=== PATIENT | female | born 1995 | race Caucasian/White ===

== ENCOUNTER 2017-12-02 16:24 | Emergency (ER) | payer SELFPAY ==
[~2017-12-02] VITALS: Ht 167.6 cm; Wt 55.3 kg
[2017-12-02 19:01] LABS: BASOPHILS # (AUTO) 0.1 10^3/uL (0.0-0.1); BASOPHILS % (AUTO) 1 % (0-10); EOSINOPHILS % (AUTO) 0 % (0-10); HEMATOCRIT 39 % (35-52); HEMOGLOBIN 13.4 G/DL (11.5-16.0); LYMPHOCYTES # (AUTO) 1.8 X 10^3 (1.0-4.0); LYMPHOCYTES % (AUTO) 15 % (12-44); MEAN CORPUSCULAR HEMOGLOBIN 29 PG (25-34); MEAN CORPUSCULAR HGB CONC 34 G/DL (32-36); MEAN CORPUSCULAR VOLUME 85 FL (80-99); MEAN PLATELET VOLUME 9.8 FL (7.4-10.4); MONOCYTES # (AUTO) 0.6 X 10^3 (0.0-1.0); MONOCYTES % (AUTO) 5 % (0-12); NEUTROPHILS # (AUTO) 9.5 X 10^3 (1.8-7.8); NEUTROPHILS % (AUTO) 80 % (42-75); PLATELET COUNT 388 10^3/uL (130-400); RED BLOOD COUNT 4.58 10^6/uL (4.35-5.85); RED CELL DISTRIBUTION WIDTH 13.1 % (10.0-14.5); WHITE BLOOD COUNT 11.9 10^3/uL (4.3-11.0)
[2017-12-02 19:15] LABS: BILIRUBIN,URINE NEGATIVE (NEGATIVE); CLARITY,URINE CLEAR; COLOR,URINE YELLOW; GLUCOSE, URINE (UA) NEGATIVE (NEGATIVE); KETONES,URINE 4+ (NEGATIVE); LEUKOCYTE ESTERASE ,URINE NEGATIVE (NEGATIVE); NITRITE,URINE NEGATIVE (NEGATIVE); PH,URINE 5 (5-9); PROTEIN,URINE 1+ (NEGATIVE); UROBILINOGEN,URINE NORMAL (NORMAL)
[2017-12-02 19:20] LABS: HCG,QUALITATIVE URINE NEGATIVE (NEGATIVE)
--- NOTE | 2017-12-02 19:21 | ED Psychosocial ---
General Chief Complaint: Psych/Social Disorder Stated Complaint: SELF HARM/ANXIETY Nursing Triage Note: PT AMB TO ROOM 6 WITH MOTHER AND SO. PT REPORTS THAT IN THE LAST FEW WEEKS SHE WAS STARTED ON FLUOXETINE 20 MG AND THAT DOSAGE WAS INCREASED TO 40 MG 3 DAYS AGO. SHE WAS ALSO STARTED ON RIXULTI. PT REPORTS PARANOIA, SUICIDAL IDEATION, AND BEING EXTREMELY ANXIOUS. PT DENIES THAT SHE HAS ANY PLAN AND DENIES ACCESS TO ANY WEAPONS. PT SO REPORTS THAT PT WROTE SUICIDE NOTES YESTERDAY. Source: patient Exam Limitations: no limitations History of Present Illness Date Seen by Provider: Dec 02, 2017 Time Seen by Provider: 19:21 Allergies and Home Medications Allergies Coded Allergies: No Known Drug Allergies (Unverified , 12/02/17) Past Oeufbbe-Pogotw-Pbaqde Hx Patient Social History Alcohol Use: Denies Use Recreational Drug Use: No Smoking Status: Never a Smoker 2nd Hand Smoke Exposure: No Recent Foreign Travel: No Contact w/Someone Who Travel: No Recent Infectious Disease Expo: No Recent Hopitalizations: No Seasonal Allergies Seasonal Allergies: No Past Medical History Surgeries: No Psychosocial: Yes Anxiety, Depression Nursing Suicide Risk Notes: PT REPORTS NO CURRENT PLAN. MOTHER REMAINS AT BEDSIDE AND GIVEN INSTRUCTIONS FOR SUICIDE PRECAUTIONS. Physical Exam Vital Signs Vital Signs - First Documented 12/02/17 18:15 Temp 97.3 Pulse 131 Resp 20 B/P (MAP) 128/78 (95) Pulse Ox 98 O2 Delivery Room Air Capillary Refill : Less Than 3 Seconds Progress/Results/Core Measures Lab Results Laboratory Tests Test 12/02/17 18:30 12/02/17 18:55 Range/Units Urine Color YELLOW Urine Clarity CLEAR Urine pH 5 5-9 Urine Specific [place] 1.025 H 1.016-1.022 Urine Protein 1+ H NEGATIVE Urine Glucose (UA) NEGATIVE NEGATIVE Urine Ketones 4+ H NEGATIVE Urine Nitrite NEGATIVE NEGATIVE Urine Bilirubin NEGATIVE NEGATIVE Urine Urobilinogen NORMAL NORMAL MG/DL Urine Leukocyte Esterase NEGATIVE NEGATIVE Urine RBC (Auto) NEGATIVE NEGATIVE Urine RBC NONE /HPF Urine WBC 0-2 /HPF Urine Squamous Epithelial Cells 2-5 /HPF Urine Renal Epithelial Cells NONE /HPF Urine Crystals NONE /LPF Urine Bacteria NEGATIVE /HPF Urine Casts NONE /LPF Urine Mucus MODERATE H /LPF Urine Culture Indicated NO Urine Test NEGATIVE NEGATIVE Urine Opiates Screen NEGATIVE NEGATIVE Urine Oxycodone Screen NEGATIVE NEGATIVE Urine Methadone Screen NEGATIVE NEGATIVE Urine Propoxyphene Screen NEGATIVE NEGATIVE Urine Barbiturates Screen NEGATIVE NEGATIVE Ur Tricyclic Antidepressants Screen NEGATIVE NEGATIVE Urine Phencyclidine Screen NEGATIVE NEGATIVE Urine Amphetamines Screen NEGATIVE NEGATIVE Urine Methamphetamines Screen NEGATIVE NEGATIVE Urine Benzodiazepines Screen POSITIVE H NEGATIVE Urine Cocaine Screen NEGATIVE NEGATIVE Urine Cannabinoids Screen NEGATIVE NEGATIVE White Blood Count 11.9 H 4.3-11.0 10^3/uL Red Blood Count 4.58 4.35-5.85 10^6/uL Hemoglobin 13.4 11.5-16.0 G/DL Hematocrit 39 35-52 % Mean Corpuscular Volume 85 80-99 FL Mean Corpuscular Hemoglobin 29 25-34 PG Mean Corpuscular Hemoglobin Concent 34 32-36 G/DL Red Cell Distribution Width 13.1 10.0-14.5 % Platelet Count 388 130-400 10^3/uL Mean Platelet Volume 9.8 7.4-10.4 FL Neutrophils (%) (Auto) 80 H 42-75 % Lymphocytes (%) (Auto) 15 12-44 % Monocytes (%) (Auto) 5 0-12 % Eosinophils (%) (Auto) 0 0-10 % Basophils (%) (Auto) 1 0-10 % Neutrophils # (Auto) 9.5 H 1.8-7.8 X 10^3 Lymphocytes # (Auto) 1.8 1.0-4.0 X 10^3 Monocytes # (Auto) 0.6 0.0-1.0 X 10^3 Eosinophils # (Auto) 0.0 0.0-0.3 10^3/uL Basophils # (Auto) 0.1 0.0-0.1 10^3/uL Sodium Level 138 135-145 MMOL/L Potassium Level 3.6 3.6-5.0 MMOL/L Chloride Level 107 98-107 MMOL/L Carbon Dioxide Level 17 L 21-32 MMOL/L Anion Gap 14 5-14 MMOL/L Blood Urea Nitrogen 8 7-18 MG/DL Creatinine 0.69 0.60-1.30 MG/DL Estimat Glomerular Filtration Rate > 60 BUN/Creatinine Ratio 12 Glucose Level 122 H 70-105 MG/DL Calcium Level 9.8 8.5-10.1 MG/DL Total Bilirubin 0.5 0.1-1.0 MG/DL Aspartate Amino Transf (AST/SGOT) 18 5-34 U/L Alanine Aminotransferase (ALT/SGPT) 16 0-55 U/L Alkaline Phosphatase 86 40-136 U/L Total Protein 7.6 6.4-8.2 GM/DL Albumin 4.6 H 3.2-4.5 GM/DL TSH [place] Testing 0.84 0.35-4.94 UIU/ML Salicylates Level < 5.0 L 5.0-20.0 MG/DL Acetaminophen Level < 10 L 10-30 UG/ML Serum Alcohol < 10 <10 MG/DL My Orders Orders - JOSE WHITE Ua Culture If Indicated (12/02/17 17:13) Cbc With Automated Diff (12/02/17 17:13) Comprehensive Metabolic Panel (12/02/17 17:13) Alcohol (12/02/17 17:13) Drug Screen Stat (Urine) (12/02/17 17:13) Acetaminophen (12/02/17 17:13) Salicylate (12/02/17 17:13) Ekg Tracing (12/02/17 17:13) Hcg,Qualitative Urine (12/02/17 17:13) Thyroid Analyzer (12/02/17 17:13) Saline Lock/Iv-Start (12/02/17 19:45) Ns Iv 1000 Ml (Sodium Chloride 0.9%) (12/02/17 19:45) Ns Iv 1000 Ml (Sodium Chloride 0.9%) (12/02/17 19:45) General/Regular (12/02/17 Dinner) Medications Given in ED Current Medications Medications Dose Ordered Sig/Ivana Route Start Time Stop Time Status Last Admin Dose Admin Sodium Chloride 1,000 ml @ 0 mls/hr Q0M ONCE IV 12/02/17 19:45 12/02/17 19:46 DC 12/02/17 20:10 0 MLS/HR Vital Signs/I&O 12/02/17 18:15 Temp 97.3 Pulse 131 Resp 20 B/P (MAP) 128/78 (95) Pulse Ox 98 O2 Delivery Room Air Blood Pressure Mean: 95 Departure Impression Primary Impression: Depression with anxiety Additional Impression: Dehydration Disposition: 01 HOME, SELF-CARE Condition: Improved Departure-Patient Inst. Decision time for Depature: 22:08 Referrals: [facility] (PCP/Family) Primary Care Physician Patient Instructions: Anxiety, Adult (DC), Depression, Adult (DC), Suicide Prevention Add. Discharge Instructions: All discharge instructions reviewed with patient and/or family. Voiced understanding. Continue usual home medications. Follow-up with [facility] as discussed by Rena. Expect a welfare check by [facility] within the next 24 hours. They will also schedule an outpatient appointment for medication changes and recheck. Lock up all medications. Remove all weapons, cords, knives, etc... Follow-up with your primary care provider as an outpatient for recheck. From the home. Contact the crisis line ([phone]), contact 320, contact the Police Department, or return immediately to the emergency department for worsened symptoms, thoughts of harming yourself, thoughts of harming others, or any other concerns. JOSE WHITE Dec 02, 2017 19:21
[2017-12-02 19:25] LABS: ACETAMINOPHEN < 10 UG/ML (10-30); ALANINE AMINOTRANSFERASE 16 U/L (0-55); ALBUMIN 4.6 GM/DL (3.2-4.5); ALKALINE PHOSPHATASE 86 U/L (40-136); BILIRUBIN,TOTAL 0.5 MG/DL (0.1-1.0); BUN/CREATININE RATIO 12; CALCIUM 9.8 MG/DL (8.5-10.1); CARBON DIOXIDE 17 MMOL/L (21-32); CHLORIDE 107 MMOL/L (98-107); CREATININE SERUM 0.69 MG/DL (0.60-1.30); GFR ESTIMATED > 60; GLUCOSE 122 MG/DL (70-105); POTASSIUM 3.6 MMOL/L (3.6-5.0); SALICYLATE < 5.0 MG/DL (5.0-20.0); SODIUM 138 MMOL/L (135-145); TOTAL PROTEIN 7.6 GM/DL (6.4-8.2)
[2017-12-02 19:28] LABS: AMPHETAMINE SCREEN, URINE NEGATIVE (NEGATIVE); BARBITURATE SCREEN URINE NEGATIVE (NEGATIVE); BENZODIAZEPINES SCREEN URINE POSITIVE (NEGATIVE); CANNABINOID SCREEN, URINE NEGATIVE (NEGATIVE); COCAINE SCREEN URINE NEGATIVE (NEGATIVE); METHADONE STAT NEGATIVE (NEGATIVE); METHAMPHETAMINE SCREEN URINE S NEGATIVE (NEGATIVE); OPIATE SCREEN URINE NEGATIVE (NEGATIVE); OXYCODONE STAT NEGATIVE (NEGATIVE); PROPOXYPHENE STAT NEGATIVE (NEGATIVE); TRICYCLIC ANTIDEPRESSANTS SCRE NEGATIVE (NEGATIVE)
[2017-12-02 19:32] LABS: BACTERIA,URINE NEGATIVE /HPF; WBC,URINE 0-2 /HPF
[2017-12-02] MEDS ORDERED: NS IV 1000 ML 1,000 ML IV ONE (19:45)
[2017-12-02] MEDS ORDERED: NS IV 1000 ML 1,000 ML IV SCH (19:45)
[2017-12-02 22:30] VITALS: BP 122/74
== END 2017-12-02 22:30 | disposition home or self-care (01) ==
LOC: EDUNIT# 16:24 → ER 16:27
DX: F41.9 Anxiety disorder, unspecified (principal); F32.9 Major depressive disorder, single episode, unspecified; E86.0 Dehydration
CPT/HCPCS: 36415; 80053; 80306; 80320; 80329; 81000; 84443; 84703; 85025; 93005; 96360; 96361

== ENCOUNTER 2023-06-26 10:57 | Emergency (ER) | payer SELFPAY ==
[~2023-06-26] VITALS: Ht 170 cm; Wt 86.0 kg
[2023-06-26] MEDS ORDERED: NS IV 1000 ML 1,000 ML IV STA ×2 (11:40→12:47)
--- NOTE | 2023-06-26 11:40 | ED General ---
General Chief Complaint: Psych/Social Disorder Stated Complaint: ELEVATED HEART RATE | HX OF ANXIETY Nursing Triage Note: pt ambulates to triage with reports of having a panic attack at work. when asked about stressors,pt states she has been stressed at work, did not mention a specific event that triggered attack. coworker insisted pt go to the ER. pt is tachycardic and shaking upon arrival. pt currently takes 3 meds for anxiety/depression, denies any other health hx Source of Information: Patient Exam Limitations: No Limitations History of Present Illness Date Seen by Provider: Jun 26, 2023 Time Seen by Provider: 11:36 Initial Comments Patient is a 27-year-old female with a history of anxiety and panic attacks who presents the ED for potential panic attack. She states she was at work. She started feeling hot dizzy hot flashes. They checked her heart rate which noted her to be in tachycardia. She states she does feel anxious. She states she had some tremoring but that has improved. She states she feels nervous at this time. She denies any chest pain, shortness of breath, cough, dumping vomiting, diarrhea, fever, chills. Does smoke marijuana periodically. Denies any drug use. No suicidal homicidal thoughts. She states she is on control has not had a recent menstrual cycle. Denies of any excessive caffeine use. Allergies and Home Medications Allergies Coded Allergies: No Known Drug Allergies (Unverified , 12/02/17) Patient Home Medication List Home Medication List Reviewed: Yes Review of Systems Review of Systems Constitutional: No chills, No diaphoresis, No malaise, No weakness EENTM: No hearing loss, No ear pain, No blurred vision Respiratory: No cough, No dyspnea on exertion Cardiovascular: No chest pain, No edema Gastrointestinal: No abdominal pain, No diarrhea, No nausea, No vomiting Genitourinary: No decreased output, No discharge, No dysuria, No frequency Musculoskeletal: No back pain, No joint pain Skin: No change in color, No change in hair/nails Psychiatric/Neurological: Anxiety, Other All Other Systems Reviewed Negative Unless Noted: Yes (Panic attack) Past Vjpetnz-Qpqrwj-Jdjimi Hx Patient Social History Tobacco Use?: No Substance use?: Yes Substance type: Marijuana Substance frequency: Rarely Alcohol Use?: No Immunizations Up To Date Second COVID19 Vaccination Jacob: YES Seasonal Allergies Seasonal Allergies: No Past Medical History Surgery/Hospitalization HX: ANXIETY, OCP, DEPRESSION Surgeries: No Respiratory: No Cardiac: No Neurological: No Gastrointestinal: No Musculoskeletal: No Endocrine: No HEENT: No Cancer: No Psychosocial: Yes Anxiety, Depression Family Medical History Psychiatric Problems Physical Exam Vital Signs Vital Signs - First Documented 06/26/23 11:13 Temp 36.9 Pulse 140 Resp 20 B/P (MAP) 167/93 (117) Pulse Ox 98 O2 Delivery Room Air Capillary Refill : Less Than 3 Seconds Height, Weight, BMI Height: 5'6.00" Weight: 122lbs. oz. [id number]; 29.00 BMI Method:Stated General Appearance: No Apparent Distress, WD/WN Eyes: Bilateral Eye Normal Inspection, Bilateral Eye PERRL, Bilateral Eye EOMI HEENT: PERRL/EOMI, TMs Normal, Normal ENT Inspection, Pharynx Normal Neck: Full Range of Motion, Normal Inspection, Non Tender, Supple Respiratory: Chest Non Tender, Lungs Clear, Normal Breath Sounds Cardiovascular: No Gallop, No JVD, No Murmur, Tachycardia Gastrointestinal: Normal Bowel Sounds, No Organomegaly, No Pulsatile Mass, Non Tender Back: Normal Inspection, No CVA Tenderness Extremity: Normal Capillary Refill, Normal Inspection, Normal Range of Motion, Non Tender Neurologic/Psychiatric: Alert, Oriented x3, No Motor/Sensory Deficits, Normal Mood/Affect, physical plant employee II-XII Norm as Tested Skin: Normal Color, Warm/Dry Progress/Results/Core Measures Suspected Sepsis SIRS Temperature: Pulse: 140 Respiratory Rate: 20 Laboratory Tests 06/26/23 11:55: White Blood Count 15.9H Blood Pressure 167 /93 Mean: 117 Laboratory Tests 06/26/23 11:55: Creatinine 0.89, Platelet Count 448H, Total Bilirubin 0.3 Results/Orders Lab Results Laboratory Tests Test 06/26/23 11:55 06/26/23 12:54 06/26/23 13:10 Range/Units White Blood Count 15.9 H 4.3-11.0 10^3/uL Red Blood Count 5.17 H 3.80-5.11 10^6/uL Hemoglobin 14.9 11.5-16.0 g/dL Hematocrit 44 35-52 % Mean Corpuscular Volume 86 80-99 fL Mean Corpuscular Hemoglobin 29 25-34 pg Mean Corpuscular Hemoglobin Concent 34 32-36 g/dL Red Cell Distribution Width 13.8 10.0-14.5 % Platelet Count 448 H 130-400 10^3/uL Mean Platelet Volume 9.1 9.0-12.2 fL Immature Granulocyte % (Auto) 1 % Neutrophils (%) (Auto) 78 H 42-75 % Lymphocytes (%) (Auto) 15 12-44 % Monocytes (%) (Auto) 5 0-12 % Eosinophils (%) (Auto) 0 0-10 % Basophils (%) (Auto) 0 0-10 % Neutrophils # (Auto) 12.4 H 1.8-7.8 10^3/uL Lymphocytes # (Auto) 2.3 1.0-4.0 10^3/uL Monocytes # (Auto) 0.8 0.0-1.0 10^3/uL Eosinophils # (Auto) 0.1 0.0-0.3 10^3/uL Basophils # (Auto) 0.1 0.0-0.1 10^3/uL Immature Granulocyte # (Auto) 0.2 H 0.0-0.1 10^3/uL Neutrophils % (Manual) 78 % Lymphocytes % (Manual) 17 % Monocytes % (Manual) 5 % Eosinophils % (Manual) 0 % Basophils % (Manual) 0 % Band Neutrophils 0 % Blood Morphology Comment NORMAL Sodium Level 141 135-145 MMOL/L Potassium Level 3.6 3.6-5.0 MMOL/L Chloride Level 110 H 98-107 MMOL/L Carbon Dioxide Level 17 L 21-32 MMOL/L Anion Gap 14 5-14 MMOL/L Blood Urea Nitrogen 8 7-18 MG/DL Creatinine 0.89 0.60-1.30 MG/DL Estimat Glomerular Filtration Rate 91 BUN/Creatinine Ratio 9 Glucose Level 156 H 70-105 MG/DL Calcium Level 9.5 8.5-10.1 MG/DL Corrected Calcium 9.2 8.5-10.1 MG/DL Magnesium Level 1.8 1.6-2.4 MG/DL Total Bilirubin 0.3 0.1-1.0 MG/DL Aspartate Amino Transf (AST/SGOT) 18 5-34 U/L Alanine Aminotransferase (ALT/SGPT) 33 0-55 U/L Alkaline Phosphatase 146 H 40-136 U/L Troponin I < 0.028 <0.028 NG/ML Total Protein 8.0 6.4-8.2 GM/DL Albumin 4.4 3.2-4.5 GM/DL Lipase 8 8-78 U/L Thyroid Stimulating Hormone (TSH) 1.21 0.35-4.94 UIU/ML Influenza Type A (RT-PCR) Not Detected Not Detecte Influenza Type B (RT-PCR) Not Detected Not Detecte SARS-CoV-2 RNA (RT-PCR) Not Detected Not Detecte Urine Color YELLOW Urine Clarity CLOUDY H Urine pH 5.5 5-9 Urine Specific [place] >=1.030 1.016-1.022 Urine Protein 2+ H NEGATIVE Urine Glucose (UA) NEGATIVE NEGATIVE Urine Ketones TRACE H NEGATIVE Urine Nitrite NEGATIVE NEGATIVE Urine Bilirubin 1+ H NEGATIVE Urine Urobilinogen 0.2 < = 1.0 MG/DL Urine Leukocyte Esterase NEGATIVE NEGATIVE Urine RBC (Auto) NEGATIVE NEGATIVE Urine RBC NONE /HPF Urine WBC RARE /HPF Urine Squamous Epithelial Cells 10-25 H /HPF Urine Crystals NONE /LPF Urine Bacteria LARGE H /HPF Urine Casts PRESENT /LPF Urine Hyaline Casts 5-10 H /LPF Urine Mucus NEGATIVE /LPF Urine Culture Indicated NO Urine Test NEGATIVE NEGATIVE Urine Opiates Screen NEGATIVE NEGATIVE Urine Oxycodone Screen NEGATIVE NEGATIVE Urine Methadone Screen NEGATIVE NEGATIVE Urine Barbiturates Screen NEGATIVE NEGATIVE Ur Tricyclic Antidepressants Screen NEGATIVE NEGATIVE Urine Phencyclidine Screen NEGATIVE NEGATIVE Urine Amphetamines Screen NEGATIVE NEGATIVE Urine Methamphetamines Screen NEGATIVE NEGATIVE Urine Benzodiazepines Screen POSITIVE H NEGATIVE Urine Cocaine Screen NEGATIVE NEGATIVE Urine Cannabinoids Screen NEGATIVE NEGATIVE My Orders Orders - GHASSAN MARTI PA Ekg Tracing (06/26/23 11:12) Cbc And Automated Diff (06/26/23 11:34) Comprehensive Metabolic Panel (06/26/23 11:34) Lipase (06/26/23 11:34) Troponin I Della (06/26/23 11:34) Chest 1 View, Ap/Pa Only (06/26/23 11:34) Thyroid Stimulating Hormone (06/26/23 11:34) Lorazepam Injection (Lorazepam Injection (06/26/23 11:45) Urinalysis (06/26/23 11:34) Hcg,Qualitative Urine (06/26/23 11:34) Drug Screen Stat (Urine) (06/26/23 11:34) Magnesium (06/26/23 11:40) Ns Iv 1000 Ml (Ns Iv 1000 Ml) (06/26/23 11:40) Manual Differential (06/26/23 11:55) Covid 19 Inhouse Test (06/26/23 12:28) Influenza A And B By Pcr (06/26/23 12:28) Ns Iv 1000 Ml (Ns Iv 1000 Ml) (06/26/23 12:47) Ekg Tracing (06/26/23 14:12) Medications Given in ED Current Medications Medications Dose Ordered Sig/Ivana Route Start Time Stop Time Status Last Admin Dose Admin Lorazepam 1 mg ONCE ONCE IVP 06/26/23 11:45 06/26/23 11:46 DC 06/26/23 11:56 1 MG Vital Signs/I&O 06/26/23 06/26/23 11:13 14:30 Temp 36.9 36.9 Pulse 140 131 Resp 20 20 B/P (MAP) 167/93 (117) 152/103 Pulse Ox 98 98 O2 Delivery Room Air Room Air Capillary Refill : Less Than 3 Seconds Blood Pressure Mean: 117 ECG Comment Sinus tachycardia with short NC interval, moderate ST depression, 151 bpm, QRS duration 77 MS, QTc 406 MS. EKG : Comment EKG 1418 shows sinus tachycardia, borderline left axis deviation, nonspecific T wave normality, 127 bpm, QRS duration 82 MS, QTc 410 MS. Departure Communication (PCP) Reviewed previous ER visits, H&P, lab testing. Differential diagnosis anxiety, panic attack, metabolic syndrome, dehydration, POTS. She reports history of tachycardia. She states she started a new job 1 week ago. She is a nurse aide. Started feeling anxious at work with dizziness and lightheadedness. She had no associated chest pain or shortness of breath. No flulike symptoms. Denies headache, unilateral weakness or sensory changes. No strokelike symptoms. She does take anxiety medication. Denies history of thyroid disease or known adrenal disease. Patient was tachycardic on arrival. Heart rate around 140. After reviewing previous visits her heart rate has been as high as in the 130s in 2018. She denies any vomiting. Denies any drug use or stimulant use. EKG, generalized lab work, drug screen, chest x-ray was ordered. She was started on a liter of fluid. She appeared anxious. She did receive Ativan 1 mg with sig nificant improvement. Heart rate EKG was around 150. Sinus tachycardia with short NC interval concerning for possible atrial flutter. No history of arrhythmia. No known cardiac history. No chest pain or shortness of breath. CBC showed white blood count 15. Blood sugar 156. Lab work otherwise grossly unremarkable. Urinalysis negative for infection or . COVID influenza were ordered which were negative. Chest x-ray negative for pneumonia. After 2 L of fluid heart rate did improve down into the 110s to 120s. She remained asymptomatic. Drug screen unremarkable. Normal troponin, TSH and urinalysis. Denies any alcohol use. Does not appear to be viral in nature. No meningeal signs. Did recheck a EKG which had heart rate of 127 bpm sinus tachycardia. EKG in 2018 showed a heart rate of 131 very similar in appearance. Patient is not anemic. No evidence suggesting thyroid storm. No chest pain or shortness of breath suggesting PE. May be slightly dehydrated. Since patient is hemodynamically stable no current complaint outpatient cardiac follow-up for the elevated heart rate. I did suggest follow-up with your PCP in the next 1 to 2 days for reevaluation of your heart rate. If any worsening symptoms such as chest pain or shortness of breath syncope to return back to ED. Impression Primary Impression: Anxiety Additional Impression: Tachycardia Disposition: 01 HOME, SELF-CARE Condition: Stable Departure-Patient Inst. Decision time for Depature: 13:52 Referrals: [facility] [place] Primary Care Physician MCKAYLA MALDONADO MD Patient Instructions: Tachycardia (DC) Add. Discharge Instructions: Continue with your medication. Strongly advise follow-up with your primary in the next 1 to 2 days for reevaluation from today's visit. Cardiology outpatient follow-up for the tachycardia. All discharge instructions reviewed with patient and/or family. Voiced understanding. GHASSAN MARTI Jun 26, 2023 11:39
[2023-06-26 12:06] LABS: BASOPHILS # (AUTO) 0.1 10^3/uL (0.0-0.1); BASOPHILS % (AUTO) 0 % (0-10); EOSINOPHILS # (AUTO) 0.1 10^3/uL (0.0-0.3); EOSINOPHILS % (AUTO) 0 % (0-10); HEMATOCRIT 44 % (35-52); HEMOGLOBIN 14.9 g/dL (11.5-16.0); LYMPHOCYTES # (AUTO) 2.3 10^3/uL (1.0-4.0); LYMPHOCYTES % (AUTO) 15 % (12-44); MEAN CORPUSCULAR HEMOGLOBIN 29 pg (25-34); MEAN CORPUSCULAR HGB CONC 34 g/dL (32-36); MEAN CORPUSCULAR VOLUME 86 fL (80-99); MEAN PLATELET VOLUME 9.1 fL (9.0-12.2); MONOCYTES # (AUTO) 0.8 10^3/uL (0.0-1.0); MONOCYTES % (AUTO) 5 % (0-12); NEUTROPHILS # (AUTO) 12.4 10^3/uL (1.8-7.8); NEUTROPHILS % (AUTO) 78 % (42-75); PLATELET COUNT 448 10^3/uL (130-400); WHITE BLOOD COUNT 15.9 10^3/uL (4.3-11.0)
--- NOTE | 2023-06-26 12:10 | Diagnostic Imaging Report ---
INDICATION: chest pain tachycardia COMPARISON: None FINDINGS: Single frontal view of the chest demonstrates normal heart size and pulmonary vascularity. The lungs are well aerated and clear. No large pleural effusion or pneumothorax is seen. The visualized osseous structures show no acute abnormalities. IMPRESSION: 1. No acute cardiopulmonary process. Dictated by: Dictated on workstation # [id number]
[2023-06-26 12:16] LABS: ALBUMIN 4.4 GM/DL (3.2-4.5); CHLORIDE 110 MMOL/L (98-107); POTASSIUM 3.6 MMOL/L (3.6-5.0); SODIUM 141 MMOL/L (135-145)
[2023-06-26 12:18] LABS: CALCIUM 9.5 MG/DL (8.5-10.1)
[2023-06-26 12:19] LABS: GLUCOSE 156 MG/DL (70-105)
[2023-06-26 12:20] LABS: CARBON DIOXIDE 17 MMOL/L (21-32)
[2023-06-26 12:21] LABS: BILIRUBIN,TOTAL 0.3 MG/DL (0.1-1.0)
[2023-06-26 12:22] LABS: ALKALINE PHOSPHATASE 146 U/L (40-136)
[2023-06-26 12:23] LABS: CREATININE SERUM 0.89 MG/DL (0.60-1.30); GFR ESTIMATED 91
[2023-06-26 12:24] LABS: BUN/CREATININE RATIO 9
[2023-06-26 12:25] LABS: ALANINE AMINOTRANSFERASE 33 U/L (0-55); MAGNESIUM 1.8 MG/DL (1.6-2.4)
[2023-06-26 12:26] LABS: LIPASE 8 U/L (8-78)
[2023-06-26 12:48] LABS: BAND NEUTROPHILS 0 %; BASOPHILS % (MANUAL) 0 %; EOSINOPHILS % (MANUAL) 0 %; LYMPHOCYTES % (MANUAL) 17 %; MONOCYTES % (MANUAL) 5 %; NEUTROPHILS % (MANUAL) 78 %; RBC MORPH NORMAL
[2023-06-26 13:19] LABS: HCG,QUALITATIVE URINE NEGATIVE (NEGATIVE)
[2023-06-26 13:33] LABS: AMPHETAMINE SCREEN, URINE NEGATIVE (NEGATIVE); BARBITURATE SCREEN URINE NEGATIVE (NEGATIVE); CANNABINOID SCREEN, URINE NEGATIVE (NEGATIVE); COCAINE SCREEN URINE NEGATIVE (NEGATIVE); METHADONE STAT NEGATIVE (NEGATIVE); OPIATE SCREEN URINE NEGATIVE (NEGATIVE); OXYCODONE STAT NEGATIVE (NEGATIVE); TRICYCLIC ANTIDEPRESSANTS SCRE NEGATIVE (NEGATIVE)
[2023-06-26 13:35] LABS: CLARITY,URINE CLOUDY; COLOR,URINE YELLOW; PH,URINE 5.5 (5-9); PROTEIN,URINE 2+ (NEGATIVE)
[2023-06-26 13:36] LABS: BACTERIA,URINE LARGE /HPF; BILIRUBIN,URINE 1+ (NEGATIVE); GLUCOSE, URINE (UA) NEGATIVE (NEGATIVE); KETONES,URINE TRACE (NEGATIVE); LEUKOCYTE ESTERASE ,URINE NEGATIVE (NEGATIVE); NITRITE,URINE NEGATIVE (NEGATIVE); WBC,URINE RARE /HPF
[2023-06-26 14:30] VITALS: BP 152/103
== END 2023-06-26 14:50 | disposition home or self-care (01) ==
LOC: EDUNIT# 10:57 → ER 10:59
DX: F41.9 Anxiety disorder, unspecified (principal); R00.0 Tachycardia, unspecified
CPT/HCPCS: 36415; 71045; 80053; 80306; 81000; 83690; 83735; 84443; 84484; 84703; 85007; 85027; 87636; 93005